=== PATIENT | female | born 1970 | race Caucasian/White ===

== ENCOUNTER → 2021-11-13 | Outpatient (CLI) | payer OTHER ==
--- NOTE | 2021-11-14 09:31 | RAD ---
3 views the right elbow without comparison for posterior pain for one half months, frequent overhead lifting. FINDINGS: There is no fracture, dislocation, or acute osseous abnormality of the elbow. No significan t degenerative changes. No radiopaque foreign bodies are seen. No joint effusion is identified. IMPRESSION: 1. No acute osseous abnormalities. Electronically signed by: Trevin Franz MD (11/14/2021 9:28 AM) [id number]
== END ==
LOC: RAD 15:16
PROVIDERS: ATTEND Orthopaedic Surgery
DX: M25.521 Pain in right elbow (principal)
CPT/HCPCS: 73080